=== PATIENT | female | born 1950 | race Caucasian/White ===

== ENCOUNTER 2016-08-25 18:02 | Emergency (ER) | payer MEDICAID ==
[~2016-08-25] VITALS: Ht 167.6 cm; Wt 56.8 kg
[2016-08-25] MEDS ORDERED: ALBU0.63 NEB (18:11)
[2016-08-25] MEDS ORDERED: METO-99 PO (18:11)
[2016-08-25] MEDS ORDERED: BUTA1CAP30 PO (18:12)
[2016-08-25 19:03] LABS: HEMOGLOBIN 15.6 g/dL (11.7-16.4)
[2016-08-25 19:12] LABS: BLOOD UREA NITROGEN 16 mg/dL (7-18)
[2016-08-25 19:33] VITALS: BP 144/97
== END 2016-08-25 21:23 | disposition home or self-care (01) ==
LOC: ED 21:14
DX: R53.1 Weakness (principal); C50.919 Malignant neoplasm of unspecified site of unspecified female breast; Z88.2 Allergy status to sulfonamides; Z88.1 Allergy status to other antibiotic agents
CPT/HCPCS: 36415; 80048; 82040; 84443; 85025; 99284

== ENCOUNTER 2016-08-26 12:03 | Inpatient (IN) | payer MEDICAID ==
[~2016-08-26] VITALS: Ht 167.6 cm; Wt 55.8 kg
[~2016-08-26 12:03] MED LIST: ALBU0.63 NEB; BUTA1CAP30 PO; METO-99 PO
[2016-08-26 14:27] LABS: DAU SCREEN DISCLAIMER
[2016-08-26 14:39] LABS: PATH.CAST-FLAG NOT PRESENT; SPERM-FLAG NOT PRESENT; SRC-FLAG NOT PRESENT; XTAL-FLAG NOT PRESENT; YLC-FLAG NOT PRESENT
[2016-08-26 14:49] LABS: HEMOGLOBIN 15.6 g/dL (11.7-16.4)
[2016-08-26 14:55] LABS: ASPARTATE AMINO TRANSFERASE 26 U/L (15-37); BLOOD UREA NITROGEN 13 mg/dL (7-18)
[2016-08-26 15:08] LABS: IS PT STATUS REG ER OR PRE ER? YES
[2016-08-26] MEDS ORDERED: SODIUM CHLORIDE 0.9% 1,000 ML IV ONE (15:31)
[2016-08-26] MEDS ORDERED: LORazepam 2 MG/ML, 1ML IVPush STA ×2 (15:31→16:56)
[2016-08-26] MEDS ORDERED: HYDROmorphone 1 MG/ML, 1ML ONE (15:40)
[2016-08-26] MEDS ORDERED: LORazepam 2 MG/ML, 1ML ONE (15:40)
[2016-08-26] MEDS: HYDROmorphone 1 MG/ML, 1ML IVPush PRN ×2 (15:47→16:52)
[2016-08-26] MEDS ORDERED: ALBUTEROL SULFATE 2.5 MG/3 ML HHN PRN (17:00)
[2016-08-26] MEDS ORDERED: ACETAMINOPHEN 325 MG TABLET PO PRN (17:00)
[2016-08-26] MEDS ORDERED: TRAZODONE 50MG TABLET PO PRN (17:00)
[2016-08-26] MEDS ORDERED: DOCUSATE 100 MG CAPSULE PO PRN (17:00)
[2016-08-26] MEDS ORDERED: GADOBUTROL 7.5 MMOL/7.5 ML PFS ONE (17:42)
[2016-08-26] MEDS ORDERED: LORazepam 2 MG/ML, 1ML IVPush ONE (17:54)
[2016-08-26 18:03] VITALS: BP 123/81
[2016-08-26] MEDS ORDERED: ENOXAPARIN 40 MG/0.4 ML SQ SCH (18:30)
[2016-08-26 19:04] VITALS: BP 127/84
[2016-08-26] MEDS: BUTALB/APAP/CAFFEINE 50MG/325MG/40MG PO PRN (20:23)
[2016-08-26] MEDS: METOPROLOL TARTRATE 100 MG TABLET PO SCH (20:23)
[2016-08-26] MEDS ORDERED: NICOTINE 21 MG/24 HR PATCH.TD24 TD ONE (20:30)
[2016-08-26] MEDS: DEXAMETHASONE 4 MG/ML, 1ML IVPush SCH (21:22)
[2016-08-26] MEDS: FAMOTIDINE 20 MG TABLET PO SCH (21:25)
[2016-08-27 01:54] VITALS: BP 134/89
[2016-08-27] MEDS: DEXAMETHASONE 4 MG/ML, 1ML IVPush SCH ×3 (02:40→15:09)
[2016-08-27] MEDS: BUTALB/APAP/CAFFEINE 50MG/325MG/40MG PO PRN ×2 (05:21→10:37)
[2016-08-27 06:08] LABS: BLOOD UREA NITROGEN 10 mg/dL (7-18)
[2016-08-27 07:35] VITALS: BP 137/89
[2016-08-27] MEDS: FAMOTIDINE 20 MG TABLET PO SCH (09:03)
[2016-08-27] MEDS: METOPROLOL TARTRATE 100 MG TABLET PO SCH (09:03)
[2016-08-27] MEDS ORDERED: OXYcodone/APAP 5/325MG TABLET PO PRN (10:00)
[2016-08-27 13:15] VITALS: BP 130/81
[2016-08-27] MEDS ORDERED: METH4TAB2 PO (16:13)
== END 2016-08-27 19:00 | disposition home or self-care (01) | DRG 551 ==
LOC: ED 15:28 → UNDOADMIN 15:30 → EDIP 15:30 → ED 15:35 → 3NE 17:50
PROVIDERS: ADMIT Hospitalist; ATTEND Hospitalist
PROC: 0T9B70Z Drainage of Bladder with Drainage Device, Via Natural or Artificial Opening (ICD-10-PCS; principal; 2016-08-26)
DX: M48.02 Spinal stenosis, cervical region (principal); G95.19 Other vascular myelopathies; N39.0 Urinary tract infection, site not specified; M25.78 Osteophyte, vertebrae; E87.6 Hypokalemia; J44.9 Chronic obstructive pulmonary disease, unspecified; I10 Essential (primary) hypertension; F17.210 Nicotine dependence, cigarettes, uncomplicated; R32 Unspecified urinary incontinence; R15.9 Full incontinence of feces; I45.81 Long QT syndrome; Z85.820 Personal history of malignant melanoma of skin; Z85.3 Personal history of malignant neoplasm of breast; Z98.890 Other specified postprocedural states; Z88.1 Allergy status to other antibiotic agents; Z88.2 Allergy status to sulfonamides; Z82.61 Family history of arthritis; Z98.1 Arthrodesis status
CPT/HCPCS: 36415; 70450; 72125; 72156; 80048; 80053; 80307; 81001; 84484; 85025; 87077; 87086; 87147; 87186; 93005; 96372; 96374; 96375; A9585; J1100; J1170; J1650; J2060; J7030

== ENCOUNTER 2018-01-29 21:14 | Inpatient (IN) | payer MEDICARE, MEDICAID ==
[~2018-01-29] VITALS: Ht 167.6 cm; Wt 56.9 kg
[~2018-01-29 21:14] MED LIST changes: +BACL20TA PO; +GABA600T2 PO; +LOSA25TA2 PO; +LOSA50TA6 PO; +METH4TAB2 PO; +METO50TA82 PO; +TRAZ-136 PO
[2018-01-29] MEDS ORDERED: ALBUTEROL/IPRATROPIUM 2.5MG/0.5MG, 3 ML ONE (21:16)
[2018-01-29] MEDS ORDERED: ALBUTEROL SULFATE 2.5MG/0.5ML ONE (21:19)
[2018-01-29] MEDS ORDERED: ALBUTEROL 0.5%, 20ML ONE (21:22)
[2018-01-29] MEDS ORDERED: MIDAZOLAM 1 MG/ML, 2ML ONE ×2 (21:26→21:34)
[2018-01-29] MEDS ORDERED: ONDANSETRON 2MG/ML, 2ML IVPush ONE (21:30)
[2018-01-29] MEDS ORDERED: DIPH,PERTUSS(ACELL),TET VAC/PF 0.5 ML IM-VACC ONE ×2 (21:30→21:52)
[2018-01-29] MEDS ORDERED: SODIUM CHLORIDE 0.9% 1,000ML IVBOLUS ONE (21:30)
[2018-01-29] MEDS ORDERED: LABETALOL 5MG/ML, 20ML ONE (21:52)
[2018-01-29] MEDS ORDERED: MIDAZOLAM 1 MG/ML, 2ML IVPush ONE (22:00)
[2018-01-29 22:03] LABS: BASOPHILS # (AUTO) 0.02 x10^3/uL (0-0.1); BASOPHILS % (AUTO) 0 % (0-1); EOSINOPHILS % (AUTO) 0 % (1-7); LYMPHOCYTES # (AUTO) 0.87 x10^3/uL (1-3.4); LYMPHOCYTES % (AUTO) 9 % (22-44); MD NO; MEAN CORPUSCULAR HEMOGLOBIN 32.1 pg (27.0-34.8); MEAN CORPUSCULAR HGB CONC 32.9 g/dL (32.4-35.8); MEAN CORPUSCULAR VOLUME 97.4 fL (80-100); MEAN PLATELET VOLUME 7.7 fL (7.4-10.4); MONOCYTES # (AUTO) 0.48 x10^3/uL (0.2-0.8); MONOCYTES % (AUTO) 5 % (2-9); NEUTROPHILS # (AUTO) 8.67 x10^3/uL (1.8-6.8); NEUTROPHILS % (AUTO) 86 % (42-75); PLATELET COUNT 368 x10^3/uL (130-400); RED BLOOD COUNT 4.47 x10^6/uL (3.82-5.3); RED CELL DISTRIBUTION WIDTH 19.5 % (9.6-15.2)
[2018-01-29] MEDS ORDERED: FENTANYL PF 100 MCG/2ML ONE (22:07)
[2018-01-29 22:13] LABS: INTERNATIONAL NORMALIZED RATIO 1.2 (0.93-1.1); PROTHROMBIN TIME 12.3 Seconds (9.6-11.5)
[2018-01-29 22:16] LABS: ALANINE AMINOTRANSFERASE 15 U/L (12-78); ALBUMIN 2.7 g/dL (3.4-5.0); ANION GAP 10 mmol/L (5-15); CALCIUM 8.2 mg/dL (8.5-10.1); CHLORIDE 104 mmol/L (98-107); CREATININE 0.77 mg/dL (0.55-1.02)
[2018-01-29 22:18] LABS: ALKALINE PHOSPHATASE 109 U/L (45-117); BILIRUBIN,TOTAL 0.5 mg/dL (0.2-1.0)
[2018-01-29 22:21] LABS: MICROSCOPIC NOT IND
[2018-01-29 22:27] LABS: CULTURE INDICATED? NO
[2018-01-29] MEDS ORDERED: FENTANYL PF 100 MCG/2ML IV ONE ×2 (22:30)
[2018-01-29] MEDS ORDERED: LABETALOL 5MG/ML, 20ML IVPush ONE ×2 (22:30→23:00)
[2018-01-29 22:34] LABS: ACETAMINOPHEN < 2 mcg/mL (10-30)
[2018-01-29 22:35] LABS: AMPHETAMINE SCREEN, URINE Negative (Negative); BARBITURATE SCREEN, URINE Negative (Negative); BENZODIAZEPINE SCREEN, URINE Positive (Negative); CANNABINOID SCREEN, URINE Negative (Negative); COCAINE SCREEN, URINE Negative (Negative); METHADONE SCREEN, URINE Negative (Negative); OPIATE SCREEN, URINE Negative (Negative)
[2018-01-29] MEDS ORDERED: BISACODYL 10 MG SUPP PR PRN (23:30)
[2018-01-29] MEDS ORDERED: ONDANSETRON 2MG/ML, 2ML IVPush PRN (23:30)
[2018-01-29] MEDS ORDERED: ALBUTEROL SULFATE 2.5 MG/3 ML NEB PRN (23:30)
[2018-01-29] MEDS ORDERED: hydrALAzine 20 MG/ML, 1ML IVPush PRN (23:30)
[2018-01-29] MEDS ORDERED: hydrALAzine 20 MG/ML, 1ML ONE (23:44)
[2018-01-30 00:02] LABS: FOLATE LEVEL 4.6 ng/mL (3.1-17.5)
[2018-01-30] MEDS ORDERED: MORPHINE SULFATE 4 MG/ML, 1ML IVPush PRN (00:30)
[2018-01-30] MEDS ORDERED: MORPHINE SULFATE 4 MG/ML, 1ML ONE (00:34)
[2018-01-30] MEDS: NS + 20MEQ KCL 1,000 ML IV SCH ×2 (00:58→08:53)
[2018-01-30] MEDS: NICOTINE 21 MG/24 HR PATCH.TD24 TD SCH ×2 (01:02→23:52)
[2018-01-30 01:14] VITALS: BP 134/78
[2018-01-30 02:19] VITALS: BP 138/72
[2018-01-30 05:25] LABS: BASOPHILS # (AUTO) 0.02 x10^3/uL (0-0.1); BASOPHILS % (AUTO) 0 % (0-1); EOSINOPHILS % (AUTO) 0 % (1-7); LYMPHOCYTES # (AUTO) 1.31 x10^3/uL (1-3.4); LYMPHOCYTES % (AUTO) 13 % (22-44); MD NO; MEAN CORPUSCULAR HEMOGLOBIN 31.7 pg (27.0-34.8); MEAN CORPUSCULAR HGB CONC 32.6 g/dL (32.4-35.8); MEAN CORPUSCULAR VOLUME 97.3 fL (80-100); MEAN PLATELET VOLUME 8.4 fL (7.4-10.4); MONOCYTES # (AUTO) 0.73 x10^3/uL (0.2-0.8); MONOCYTES % (AUTO) 7 % (2-9); NEUTROPHILS # (AUTO) 8.45 x10^3/uL (1.8-6.8); NEUTROPHILS % (AUTO) 80 % (42-75); PLATELET COUNT 332 x10^3/uL (130-400); RED CELL DISTRIBUTION WIDTH 18.3 % (9.6-15.2)
[2018-01-30 05:33] LABS: ALANINE AMINOTRANSFERASE 15 U/L (12-78); ALBUMIN 2.5 g/dL (3.4-5.0); ANION GAP 11 mmol/L (5-15); CALCIUM 8.1 mg/dL (8.5-10.1); CHLORIDE 105 mmol/L (98-107); CREATININE 0.66 mg/dL (0.55-1.02)
[2018-01-30 05:35] LABS: ALKALINE PHOSPHATASE 102 U/L (45-117); BILIRUBIN,TOTAL 0.5 mg/dL (0.2-1.0); TOTAL PROTEIN 6.8 g/dL (6.4-8.2)
[2018-01-30 06:42] VITALS: BP 150/83
[2018-01-30] MEDS: LOSARTAN 50MG TABLET PO SCH ×2 (08:53→20:49)
[2018-01-30] MEDS: METOPROLOL TARTRATE 50 MG TABLET PO SCH ×2 (08:53→20:49)
[2018-01-30] MEDS ORDERED: VANCOMYCIN PER PHARMACY MC PRN (11:00)
[2018-01-30 12:40] VITALS: BP 144/81
[2018-01-30] MEDS ORDERED: PHARMACOKINETIC MONITORING MC PRN (13:00)
[2018-01-30] MEDS: morphine SULFATE 10 MG/ML, 1ML IVPush PRN ×2 (13:23→17:48)
[2018-01-30] MEDS: PIPERACILLIN/TAZO/PMX 4.5GM 100 ML IV SCH ×2 (14:05→21:44)
[2018-01-30] MEDS: VANCOMYCIN PMX 1GM/200ML 200 ML IV SCH ×2 (14:59→22:37)
[2018-01-30] MEDS ORDERED: FENTANYL PF 100 MCG/2ML ONE ×2 (18:03→19:24)
[2018-01-30] MEDS ORDERED: MIDAZOLAM 1 MG/ML, 2ML ONE (18:04)
[2018-01-30] MEDS ORDERED: SUCCINYLCHOLINE 20 MG/ML, 10ML ONE (19:01)
[2018-01-30] MEDS ORDERED: NEOSTIGMINE 1 MG/ML, 10ML ONE (19:01)
[2018-01-30] MEDS ORDERED: ROCURONIUM 10MG/ML,5ML ONE (19:01)
[2018-01-30] MEDS ORDERED: CEFAZOLIN 1,000 MG ONE (19:01)
[2018-01-30] MEDS ORDERED: DEXAMETHASONE 4 MG/ML, 1ML ONE (19:01)
[2018-01-30] MEDS ORDERED: ONDANSETRON 2MG/ML, 2ML ONE (19:01)
[2018-01-30] MEDS ORDERED: PROPOFOL 10 MG/ML, 20ML ONE (19:01)
[2018-01-30] MEDS ORDERED: GLYCOPYRROLATE 0.2MG/1ML, 5ML ONE (19:01)
[2018-01-30] MEDS ORDERED: OXYcodone 5 MG/5 ML ORAL.SOL UDC ONE (19:24)
[2018-01-30] MEDS: FENTANYL PF 100 MCG/2ML IV PRN ×3 (19:26→19:43)
[2018-01-30] MEDS ORDERED: OXYcodone 5 MG/5 ML ORAL.SOL UDC PO PRN (19:30)
[2018-01-30] MEDS ORDERED: LORazepam 2 MG/ML, 1ML IVPush PRN (19:30)
[2018-01-30] MEDS ORDERED: ONDANSETRON 2MG/ML, 2ML IV PRN (19:30)
[2018-01-30] MEDS ORDERED: PROCHLORPERAZINE 5 MG/ML, 2ML IV PRN (19:30)
[2018-01-30] MEDS ORDERED: MIDAZOLAM 1 MG/ML, 2ML IV PRN (19:30)
[2018-01-30] MEDS ORDERED: PROMETHAZINE 25 MG/ML, 1ML IV PRN (19:30)
[2018-01-30] MEDS ORDERED: HYDROmorphone 2 MG/ML, 1ML ONE (19:44)
[2018-01-30] MEDS: HYDROmorphone 1 MG/ML, 1ML IV PRN ×4 (19:45→20:08)
[2018-01-30 20:38] VITALS: BP 139/87
[2018-01-30] MEDS ORDERED: NS + 20MEQ KCL 1,000 ML IV SCH (23:14)
[2018-01-31] MEDS: morphine SULFATE 10 MG/ML, 1ML IVPush PRN ×5 (00:10→20:08)
[2018-01-31 02:33] VITALS: BP 126/72
[2018-01-31] MEDS: PIPERACILLIN/TAZO/PMX 4.5GM 100 ML IV SCH ×3 (04:56→22:38)
[2018-01-31 06:12] LABS: ANION GAP 9 mmol/L (5-15); CHLORIDE 106 mmol/L (98-107)
[2018-01-31 06:14] LABS: CREATININE 0.71 mg/dL (0.55-1.02)
[2018-01-31 06:18] LABS: BASOPHILS # (AUTO) 0.04 x10^3/uL (0-0.1); BASOPHILS % (AUTO) 0 % (0-1); EOSINOPHILS # (AUTO) 0.04 x10^3/uL (0-0.4); EOSINOPHILS % (AUTO) 0 % (1-7); LYMPHOCYTES # (AUTO) 1.63 x10^3/uL (1-3.4); LYMPHOCYTES % (AUTO) 18 % (22-44); MD NO; MEAN CORPUSCULAR HEMOGLOBIN 31.8 pg (27.0-34.8); MEAN CORPUSCULAR HGB CONC 33.1 g/dL (32.4-35.8); MEAN PLATELET VOLUME 8.1 fL (7.4-10.4); MONOCYTES % (AUTO) 8 % (2-9); NEUTROPHILS # (AUTO) 6.89 x10^3/uL (1.8-6.8); NEUTROPHILS % (AUTO) 74 % (42-75); PLATELET COUNT 286 x10^3/uL (130-400); RED CELL DISTRIBUTION WIDTH 18.4 % (9.6-15.2)
[2018-01-31 07:31] VITALS: BP 107/66
[2018-01-31] MEDS: VANCOMYCIN PMX 1GM/200ML 200 ML IV SCH ×2 (07:32→15:56)
[2018-01-31] MEDS ORDERED: POTASSIUM CHLORIDE 20 MEQ TAB.ER.PRT PO ONE (09:30)
[2018-01-31 13:17] VITALS: BP 133/64
[2018-01-31 20:00] VITALS: BP 113/71
[2018-01-31] MEDS: LOSARTAN 50MG TABLET PO SCH (21:00)
[2018-01-31] MEDS: METOPROLOL TARTRATE 50 MG TABLET PO SCH (22:38)
[2018-01-31] MEDS ORDERED: NS + 20MEQ KCL 1,000 ML IV SCH (23:14)
[2018-01-31] MEDS: NICOTINE 21 MG/24 HR PATCH.TD24 TD SCH (23:29)
[2018-02-01] MEDS: morphine SULFATE 10 MG/ML, 1ML IVPush PRN ×3 (01:04→09:54)
[2018-02-01 01:19] VITALS: BP 125/82
[2018-02-01] MEDS: PIPERACILLIN/TAZO/PMX 4.5GM 100 ML IV SCH ×3 (05:51→22:27)
[2018-02-01 06:03] LABS: ANION GAP 8 mmol/L (5-15); CHLORIDE 105 mmol/L (98-107); CREATININE 0.79 mg/dL (0.55-1.02)
[2018-02-01 06:07] LABS: BASOPHILS # (AUTO) 0.05 x10^3/uL (0-0.1); BASOPHILS % (AUTO) 1 % (0-1); EOSINOPHILS # (AUTO) 0.11 x10^3/uL (0-0.4); EOSINOPHILS % (AUTO) 2 % (1-7); LYMPHOCYTES # (AUTO) 1.15 x10^3/uL (1-3.4); LYMPHOCYTES % (AUTO) 19 % (22-44); MD NO; MEAN CORPUSCULAR HEMOGLOBIN 32.2 pg (27.0-34.8); MEAN CORPUSCULAR HGB CONC 33.3 g/dL (32.4-35.8); MEAN CORPUSCULAR VOLUME 96.9 fL (80-100); MEAN PLATELET VOLUME 8.3 fL (7.4-10.4); MONOCYTES # (AUTO) 0.56 x10^3/uL (0.2-0.8); MONOCYTES % (AUTO) 9 % (2-9); NEUTROPHILS # (AUTO) 4.11 x10^3/uL (1.8-6.8); NEUTROPHILS % (AUTO) 69 % (42-75); PLATELET COUNT 283 x10^3/uL (130-400)
[2018-02-01 08:42] VITALS: BP 118/79
[2018-02-01] MEDS: LOSARTAN 50MG TABLET PO SCH ×2 (09:00→20:19)
[2018-02-01] MEDS: NICOTINE 21 MG/24 HR PATCH.TD24 TD SCH (09:54)
[2018-02-01] MEDS: METOPROLOL TARTRATE 50 MG TABLET PO SCH ×2 (10:00→20:20)
[2018-02-01 12:02] VITALS: BP 128/80
[2018-02-01] MEDS ORDERED: OXYcodone/APAP 5/325MG TABLET ONE (12:17)
[2018-02-01] MEDS: OXYcodone/APAP 5/325MG TABLET PO PRN ×2 (12:18→18:28)
[2018-02-01] MEDS ORDERED: FENTANYL PF 100 MCG/2ML ONE (16:58)
[2018-02-01] MEDS ORDERED: KETAMINE 10 MG/ML, 20ML ONE (17:40)
[2018-02-01] MEDS ORDERED: PROPOFOL 10 MG/ML, 20ML ONE (17:40)
[2018-02-01] MEDS ORDERED: MIDAZOLAM 1 MG/ML, 2ML ONE (17:41)
[2018-02-01] MEDS ORDERED: OXYcodone 5 MG/5 ML ORAL.SOL UDC ONE (18:27)
[2018-02-01] MEDS ORDERED: FENTANYL PF 100 MCG/2ML IV PRN (18:30)
[2018-02-01] MEDS ORDERED: LABETALOL 5MG/ML, 20ML IVPush PRN (19:00)
[2018-02-01 19:30] VITALS: BP 175/98
[2018-02-01] MEDS: MORPHINE SULFATE 4 MG/ML, 1ML IVPush PRN (20:20)
[2018-02-02] MEDS: MORPHINE SULFATE 4 MG/ML, 1ML IVPush PRN ×3 (00:28→20:08)
[2018-02-02 01:00] VITALS: BP 123/74
[2018-02-02] MEDS: OXYcodone/APAP 5/325MG TABLET PO PRN ×4 (04:23→22:56)
[2018-02-02] MEDS: PIPERACILLIN/TAZO/PMX 4.5GM 100 ML IV SCH ×3 (05:32→22:11)
[2018-02-02 06:25] LABS: BASOPHILS # (AUTO) 0.02 x10^3/uL (0-0.1); BASOPHILS % (AUTO) 1 % (0-1); EOSINOPHILS # (AUTO) 0.14 x10^3/uL (0-0.4); EOSINOPHILS % (AUTO) 3 % (1-7); LYMPHOCYTES # (AUTO) 1.23 x10^3/uL (1-3.4); LYMPHOCYTES % (AUTO) 25 % (22-44); MD NO; MEAN CORPUSCULAR HEMOGLOBIN 31.5 pg (27.0-34.8); MEAN CORPUSCULAR HGB CONC 32.9 g/dL (32.4-35.8); MEAN CORPUSCULAR VOLUME 95.7 fL (80-100); MEAN PLATELET VOLUME 8.4 fL (7.4-10.4); MONOCYTES # (AUTO) 0.47 x10^3/uL (0.2-0.8); MONOCYTES % (AUTO) 10 % (2-9); NEUTROPHILS # (AUTO) 3.06 x10^3/uL (1.8-6.8); NEUTROPHILS % (AUTO) 62 % (42-75); PLATELET COUNT 274 x10^3/uL (130-400); RED BLOOD COUNT 3.67 x10^6/uL (3.82-5.3); RED CELL DISTRIBUTION WIDTH 18.1 % (9.6-15.2)
[2018-02-02 06:37] LABS: ALANINE AMINOTRANSFERASE 10 U/L (12-78); ALBUMIN 2.3 g/dL (3.4-5.0); ANION GAP 7 mmol/L (5-15); CALCIUM 7.9 mg/dL (8.5-10.1); CHLORIDE 105 mmol/L (98-107); CREATININE 0.73 mg/dL (0.55-1.02)
[2018-02-02 06:39] LABS: ALKALINE PHOSPHATASE 66 U/L (45-117); BILIRUBIN,TOTAL 0.5 mg/dL (0.2-1.0); TOTAL PROTEIN 5.9 g/dL (6.4-8.2); VANCOMYCIN,RANDOM 14.6 mcg/mL
[2018-02-02] MEDS ORDERED: VANCOMYCIN PMX 1GM/200ML 200 ML IV SCH (07:00)
[2018-02-02 07:08] VITALS: BP 130/81
[2018-02-02] MEDS: LOSARTAN 50MG TABLET PO SCH ×2 (08:19→20:02)
[2018-02-02] MEDS: METOPROLOL TARTRATE 50 MG TABLET PO SCH ×2 (08:20→20:02)
[2018-02-02 13:09] VITALS: BP 129/84
[2018-02-02] MEDS: POTASSIUM CHLORIDE 20 MEQ PACKET PO SCH (17:07)
[2018-02-02] MEDS: NICOTINE 21 MG/24 HR PATCH.TD24 TD SCH (17:14)
[2018-02-02 18:30] VITALS: BP 152/93
[2018-02-03 01:35] VITALS: BP 138/87
[2018-02-03] MEDS: MORPHINE SULFATE 4 MG/ML, 1ML IVPush PRN ×4 (02:37→20:11)
[2018-02-03] MEDS: PIPERACILLIN/TAZO/PMX 4.5GM 100 ML IV SCH ×3 (05:06→21:51)
[2018-02-03] MEDS: OXYcodone/APAP 5/325MG TABLET PO PRN ×3 (05:11→23:39)
[2018-02-03 05:26] LABS: BASOPHILS # (AUTO) 0.03 x10^3/uL (0-0.1); BASOPHILS % (AUTO) 1 % (0-1); EOSINOPHILS # (AUTO) 0.23 x10^3/uL (0-0.4); EOSINOPHILS % (AUTO) 4 % (1-7); LYMPHOCYTES # (AUTO) 1.69 x10^3/uL (1-3.4); LYMPHOCYTES % (AUTO) 32 % (22-44); MD NO; MEAN CORPUSCULAR HEMOGLOBIN 31.6 pg (27.0-34.8); MEAN CORPUSCULAR HGB CONC 32.7 g/dL (32.4-35.8); MEAN CORPUSCULAR VOLUME 96.6 fL (80-100); MEAN PLATELET VOLUME 8.4 fL (7.4-10.4); MONOCYTES # (AUTO) 0.74 x10^3/uL (0.2-0.8); MONOCYTES % (AUTO) 14 % (2-9); NEUTROPHILS % (AUTO) 49 % (42-75); PLATELET COUNT 284 x10^3/uL (130-400); RED BLOOD COUNT 3.77 x10^6/uL (3.82-5.3); RED CELL DISTRIBUTION WIDTH 17.9 % (9.6-15.2)
[2018-02-03 05:29] LABS: ALBUMIN 2.6 g/dL (3.4-5.0); ANION GAP 7 mmol/L (5-15); CALCIUM 8.3 mg/dL (8.5-10.1); CHLORIDE 107 mmol/L (98-107)
[2018-02-03 05:33] LABS: ALANINE AMINOTRANSFERASE 12 U/L (12-78); ALKALINE PHOSPHATASE 72 U/L (45-117); BILIRUBIN,TOTAL 0.4 mg/dL (0.2-1.0); CREATININE 0.74 mg/dL (0.55-1.02); TOTAL PROTEIN 6.5 g/dL (6.4-8.2)
[2018-02-03 06:45] VITALS: BP 167/96
[2018-02-03] MEDS: VANCOMYCIN PMX 1GM/200ML 200 ML IV SCH (08:04)
[2018-02-03] MEDS: POTASSIUM CHLORIDE 20 MEQ PACKET PO SCH ×2 (08:10→17:33)
[2018-02-03] MEDS: LOSARTAN 50MG TABLET PO SCH ×2 (08:11→20:11)
[2018-02-03] MEDS: METOPROLOL TARTRATE 50 MG TABLET PO SCH ×2 (08:12→20:11)
[2018-02-03 12:21] VITALS: BP 145/90
[2018-02-03] MEDS: NICOTINE 21 MG/24 HR PATCH.TD24 TD SCH (17:34)
[2018-02-03 20:10] VITALS: BP 181/96
[2018-02-04 03:30] VITALS: BP 170/96
[2018-02-04 04:54] LABS: BASOPHILS # (AUTO) 0.05 x10^3/uL (0-0.1); BASOPHILS % (AUTO) 1 % (0-1); EOSINOPHILS # (AUTO) 0.31 x10^3/uL (0-0.4); EOSINOPHILS % (AUTO) 5 % (1-7); LYMPHOCYTES # (AUTO) 1.57 x10^3/uL (1-3.4); LYMPHOCYTES % (AUTO) 26 % (22-44); MD NO; MEAN CORPUSCULAR HEMOGLOBIN 31.2 pg (27.0-34.8); MEAN CORPUSCULAR HGB CONC 32.6 g/dL (32.4-35.8); MEAN CORPUSCULAR VOLUME 95.9 fL (80-100); MEAN PLATELET VOLUME 8.6 fL (7.4-10.4); MONOCYTES % (AUTO) 13 % (2-9); NEUTROPHILS # (AUTO) 3.36 x10^3/uL (1.8-6.8); NEUTROPHILS % (AUTO) 55 % (42-75); PLATELET COUNT 315 x10^3/uL (130-400); RED BLOOD COUNT 4.09 x10^6/uL (3.82-5.3); RED CELL DISTRIBUTION WIDTH 17.8 % (9.6-15.2)
[2018-02-04 04:57] LABS: ALANINE AMINOTRANSFERASE 14 U/L (12-78); ALBUMIN 2.8 g/dL (3.4-5.0); ANION GAP 8 mmol/L (5-15); CALCIUM 8.7 mg/dL (8.5-10.1); CHLORIDE 105 mmol/L (98-107); CREATININE 0.71 mg/dL (0.55-1.02)
[2018-02-04] MEDS: OXYcodone/APAP 5/325MG TABLET PO PRN (04:57)
[2018-02-04 05:00] LABS: ALKALINE PHOSPHATASE 76 U/L (45-117); BILIRUBIN,TOTAL 0.5 mg/dL (0.2-1.0); TOTAL PROTEIN 6.9 g/dL (6.4-8.2)
[2018-02-04] MEDS: PIPERACILLIN/TAZO/PMX 4.5GM 100 ML IV SCH (06:12)
[2018-02-04 07:16] VITALS: BP 158/91
[2018-02-04] MEDS ORDERED: POTASSIUM CHLORIDE 20 MEQ PACKET PO SCH (09:00)
[2018-02-04] MEDS: VANCOMYCIN PMX 1GM/200ML 200 ML IV SCH (09:36)
[2018-02-04] MEDS: LOSARTAN 50MG TABLET PO SCH (09:36)
[2018-02-04] MEDS: METOPROLOL TARTRATE 50 MG TABLET PO SCH (09:37)
[2018-02-04] MEDS ORDERED: DOXYCYCLINE 100MG CAP PO SCH (10:30)
== END 2018-02-04 11:27 | disposition left against medical advice (07) | DRG 856 ==
LOC: ED 22:03 → EDIP 23:14 → 5SO 23:59 → 3NW 02-01 18:39
PROVIDERS: ADMIT Hospitalist; ATTEND Hospitalist
PROC: 0T9B70Z Drainage of Bladder with Drainage Device, Via Natural or Artificial Opening (ICD-10-PCS; 2018-01-29)
PROC: 0Y950ZZ Drainage of Right Inguinal Region, Open Approach (ICD-10-PCS; 2018-01-30)
PROC: 2W17X6Z Compression of Left Inguinal Region using Pressure Dressing (ICD-10-PCS; 2018-01-30)
PROC: 2W13X6Z Compression of Abdominal Wall using Pressure Dressing (ICD-10-PCS; principal; 2018-01-30 15:00)
PROC: 2W16X6Z Compression of Right Inguinal Region using Pressure Dressing (ICD-10-PCS; 2018-02-01)
PROC: 0JDC0ZZ Extraction of Pelvic Region Subcutaneous Tissue and Fascia, Open Approach (ICD-10-PCS; 2018-02-01)
DX: T81.4XXA Infection following a procedure, initial encounter (principal); A41.9 Sepsis, unspecified organism; G93.41 Metabolic encephalopathy; E44.0 Moderate protein-calorie malnutrition; I16.9 Hypertensive crisis, unspecified; I45.81 Long QT syndrome; J44.9 Chronic obstructive pulmonary disease, unspecified; E87.6 Hypokalemia; F17.210 Nicotine dependence, cigarettes, uncomplicated; I10 Essential (primary) hypertension; I89.8 Other specified noninfective disorders of lymphatic vessels and lymph nodes; M48.02 Spinal stenosis, cervical region; M50.323 Other cervical disc degeneration at C6-C7 level; R32 Unspecified urinary incontinence; W18.30XA Fall on same level, unspecified, initial encounter; Z68.20 Body mass index [BMI] 20.0-20.9, adult; Y83.8 Other surgical procedures as the cause of abnormal reaction of the patient, or of later complication, without mention of misadventure at the time of the procedure; Y92.89 Other specified places as the place of occurrence of the external cause; Z85.3 Personal history of malignant neoplasm of breast; Z85.820 Personal history of malignant melanoma of skin; Z86.79 Personal history of other diseases of the circulatory system; Z53.21 Procedure and treatment not carried out due to patient leaving prior to being seen by health care provider
CPT/HCPCS: 36415; 70450; 71045; 72125; 80048; 80053; 80202; 80307; 80329; 81003; 82140; 82607; 82746; 82962; 83605; 83735; 85025; 85610; 87040; 87070; 87075; 87205; 90471; 90715; 93005; 96374; 96375; J0690; J1100; J1170; J2250; J2405; J2543; J2704; J2710; J3010; J3370; J3480; J3490; G0480; J0330; J0360; J2270; J7030